=== PATIENT | male | born 1960 | race Caucasian/White ===

== ENCOUNTER 2018-04-23 10:34 | Emergency (ER) | payer SELFPAY ==
[~2018-04-23] VITALS: Ht 188 cm; Wt 81.6 kg
[2018-04-23 10:34] VITALS: BP 177/92
[2018-04-23] MEDS ORDERED: diphenhydrAMINE 50 MG/ML VIAL IM ONE (10:50)
[2018-04-23] MEDS ORDERED: DEXAMETHASONE 10 MG/ML VIAL IM ONE (10:50)
[2018-04-23] MEDS ORDERED: HYDROmorphone 1 MG/ML AMP IM ONE (10:50)
[2018-04-23 12:27] VITALS: BP 161/88
== END 2018-04-23 12:26 | disposition home or self-care (01) ==
LOC: MED 10:34
DX: B02.9 Zoster without complications (principal); B02.29 Other postherpetic nervous system involvement; I10 Essential (primary) hypertension
CPT/HCPCS: 96372; 99284; J1100; J1170; J1200